=== PATIENT | female | born 1985 | race Hispanic/Latino ===

== ENCOUNTER 2019-08-21 10:46 | Emergency (ER) | payer OTHER ==
[~2019-08-21] VITALS: Ht 160 cm; Wt 68.4 kg
[~2019-08-21 10:46] MED LIST: PRENATABS PO
[2019-08-21 11:25] LABS: IMMATURE GRANULOCYTES 0.6 % (0.0-5.0); MEAN CORPUSCULAR HGB 12.9 pG CALC (26.0-32.0); MEAN CORPUSCULAR HGB CONC 23.4 g/L CALC (32.0-36.0); NEUT# 5.9 thou/uL (2.00-7.15); RED BLOOD COUNT 3.57 mill/uL (4.20-5.60); RED CELL DISTRI WIDTH 22.4 % (11.5-15.5)
[2019-08-21 11:30] LABS: MEAN CELL VOLUME 55.2 fL CALC (80.0-100.0)
[2019-08-21 11:31] LABS: HEMATOCRIT 19.7 % (37.0-47.0); HEMOGLOBIN 4.6 g/dl (12.0-16.0)
[2019-08-21] MEDS ORDERED: PAROXETINE10 MG PO (11:42)
[2019-08-21] MEDS ORDERED: PROVERA5 MG PO (11:43)
[2019-08-21 11:45] LABS: ANION GAP 17 (6-22 (CALC)); BUN 9 mg/dL (7-17); BUN/CREATININE RATIO 18 (12-20 (CALC)); CARBON DIOXIDE 23 mmol/l (22-30); CHLORIDE 103 mmol/l (95-108); CREATININE 0.5 mg/dL (0.5-1.0); GFR > 60 ML/MIN (>=60 (CALC)); GFR FOR AFR.AMER. > 60 ML/MIN (>=60 (CALC)); SGOT/AST 19 u/l (14-36); SODIUM 139 mmol/l (137-146)
[2019-08-21 11:57] LABS: URINE BILIRUBIN - DIPSTICK NEGATIVE (NEGATIVE); URINE BLOOD DIPSTICK TRACE-INTACT (NEGATIVE); URINE COLOR YELLOW; URINE GLUCOSE - DIPSTICK NEGATIVE (NEGATIVE); URINE KETONE NEGATIVE (NEGATIVE); URINE LEUK ESTERASE NEGATIVE (NEGATIVE); URINE NITRITE - DIPSTICK NEGATIVE (Negative); URINE PROTEIN - DIPSTICK NEGATIVE (NEG-TRACE); URINE SPECIFIC GRAVITY <=1.005; URINE UROBILINOGEN - DIPSTICK 0.2 E.U./dL (0.2)
[2019-08-21 11:58] LABS: ALKALINE PHOSPHATASE 72 u/l (38-126); BILIRUBIN, TOTAL 0.7 mg/dL (0.0-1.4); TOTAL PROTEIN 8.9 g/dL (6.3-8.2)
[2019-08-21 12:35] VITALS: BP 108/57
[2019-08-21 13:02] VITALS: BP 126/79
[2019-08-21 13:48] VITALS: BP 124/71
[2019-08-21 13:53] VITALS: BP 124/71
== END 2019-08-21 13:53 | disposition short-term general hospital (02) ==
LOC: ED 10:46
PROVIDERS: Family Medicine
DX: D64.89 Other specified anemias (principal); N92.0 Excessive and frequent menstruation with regular cycle
CPT/HCPCS: P9016